=== PATIENT | female | born 1950 | race Caucasian/White ===

== ENCOUNTER 2016-10-30 01:05 | Emergency (ER) | payer OTHER, BC ==
[~2016-10-30] VITALS: Ht 154.9 cm; Wt 65.4 kg
[~2016-10-30 01:05] MED LIST: CENTRUM SILVER1 EAC3 PO; LOW DOSE ASPIRI81 M1 PO; MAGNESIUM250 M1 PO; OMEGA-31000 M1 PO; POTASSIUM-9999 MG PO
[2016-10-30 02:37] VITALS: BP 160/80
== END 2016-10-30 02:38 | disposition home or self-care (01) ==
LOC: EME 01:05
DX: T78.1XXA Other adverse food reactions, not elsewhere classified, initial encounter (principal); L50.9 Urticaria, unspecified; X58.XXXA Exposure to other specified factors, initial encounter
CPT/HCPCS: 99281; 99283; J8540